=== PATIENT | female | born 1945 | race Caucasian/White ===

== ENCOUNTER → 2016-09-27 | Outpatient (CLI) | payer OTHER ==
--- NOTE | 2016-09-27 12:43 | DX ---
PA lateral chest x-ray 1204 hours. History: Productive cough and fever hip for 7 to 10 days. Rule out pneumonia. Findings: Comparison to September 04, 2015 as well as remote images from CT HeartScan study of 2011. Heart size and pulmonary vasculature remain within normal limits. There is mild peribronchial cuffing in the perihilar region bilaterally. There is no consolidation, effusion, or pneumothorax. There is stable scarring in the lingula. Osseous structures are unchanged. Impression: 1. Mild peribronchial cuffing in the perihilar region. Findings are nonspecific but can be seen with bronchitis, viral process, or reactive airways disease. 2. Stable scarring within the lingula.
== END ==
LOC: FIMAGING 12:05
PROVIDERS: ATTEND Family Medicine
DX: R05 Cough (principal); R50.9 Fever, unspecified

== ENCOUNTER → 2017-08-03 | Outpatient (CLI) | payer OTHER ==
[~2017-08-03] MED LIST: GADOBUTROL 10 ML VIAL IVP ONE
== END ==
LOC: FIMAGING 10:38
PROVIDERS: ATTEND Psychiatry & Neurology Neurology
DX: G93.9 Disorder of brain, unspecified (principal)
CPT/HCPCS: 70553; A9585

== ENCOUNTER → 2018-01-28 | Outpatient (CLI) | payer OTHER | LOC: BHFA 14:00 | PROVIDERS: ATTEND Internal Medicine Cardiovascular Disease | DX: I25.10 Atherosclerotic heart disease of native coronary artery without angina pectoris (principal) ==

== ENCOUNTER → 2018-02-02 | Outpatient (CLI) | payer OTHER | LOC: BHFA 10:45 | PROVIDERS: ATTEND Internal Medicine Cardiovascular Disease | DX: I25.10 Atherosclerotic heart disease of native coronary artery without angina pectoris (principal) ==

== ENCOUNTER → 2018-08-22 | Outpatient (CLI) | payer OTHER | LOC: FIMAGING 13:32 | PROVIDERS: ATTEND Family Medicine | DX: Z12.31 Encounter for screening mammogram for malignant neoplasm of breast (principal) ==

== ENCOUNTER → 2018-11-15 | Day surgery (SDC) | payer OTHER ==
[~2018-11-15] MED LIST changes: +ASPIRIN EC 325 MG TAB PO ONE; +ATROPINE SULFATE 1 MG/10 ML SYR ONE; +CLOPIDOGREL BISULFATE 75 MG TAB ONE; +CLOPIDOGREL BISULFATE 75 MG TAB PO ONE; +CLOPIDOGREL BISULFATE 75 MG TAB PO SCH; +DIAZEPAM 5 MG TAB PO ONE; +EPINEPHrine 1 MG/10 ML SYR IVP ONE; +FAMOTIDINE 20 MG TAB PO ONE; -GADOBUTROL 10 ML VIAL IVP ONE; +HEPARIN 10,000 UNIT/10 ML MDV (1,000 UNIT/ML) ONE; +IOPAMIDOL (ISOVUE-370) 150 ML BTL IV ONE; +LIDOCAINE 1% 300 MG/30 ML SDV ONE; +MIDAZOLAM 2 MG/2 ML VIAL ONE; +NITROGLYCERIN 0.4 MG BTL SL PRN; +NS 1,000 ML IV ONE; +VERAPAMIL 5 MG/2 ML VIAL ONE; +diphenhydrAMINE 25 MG CAP PO ONE; +fentaNYL 100 MCG/2 ML INJ ONE
--- NOTE | 2018-11-15 09:06 | PDPROPOC ---
Sedation Plan of Care Sedation Plan of Care: vital signs stable, mental status noted, patient educated of risks, benefits, alternatives, patient can tolerate sedation ASA Classification: ASA 2 Planned drugs: fentanyl, midazolam Mallampati Score: Class 1 Mallampati Reference Image: Patient passed 3-3-2 rule?: Yes
--- NOTE | 2018-11-15 09:06 | PDHPUP ---
History & Physical Update H&P update statement: This history and physical update is based on an assessment of the patient which was completed after admission or registration (within 24 hours), but prior to the surgery/procedure. H&P update: H&P reviewed & patient examined, no change in patient's condition since H&P completed
[2018-11-15 09:20] LABS: PLATELET COUNT 340 10^3/uL (150-400)
[2018-11-15 09:34] LABS: INR 1.01 (0.83-1.16); PROTIME(PATIENT) 13.5 SEC (12.0-15.0)
--- NOTE | 2018-11-15 11:33 | PDDXCAT ---
Diagnostic Cath Note - . Date: 11/15/18 Home Planning Consultant Salesperson: Guero Indication: CCC Class III and IV angina on medical treatment - Procedure Access: right wrist Procedure: left heart catheterization, coronary angiography - Materials Left Heart Cath size: 4F Left Heart Cath materials: standard multipack (JL4, JR4, pigtail) - Findings-Left Heart Catheterization LM: Unobstructed LAD: Stent widely patent. Luminal regularities 20-30% LCX: 100% occluded distally with [id number] filling of the distal vessel. RCA: 99% critical mid RCA stenosis Complications: None Estimated blood loss: <50ml Closure method: TR Band Assessment: Unstable angina with critical mid RCA stenosis. Patent LAD stent. Chronically occluded obtuse marginal branch Plan: PCI Intervention: Patient was anticoagulated with heparin. Using a 6 [place] no torque right guiding catheter the right coronary selectively intubated. Using a 0.014 luge wire the RCA stenosis was crossed. Was primarily stented with a 3.0 x 16 mm synergy stent. Stent was taken to 3.3 mm at 20 atmospheres. Repeat angiogram showed GAL grade 3 flow. Conclusion successful PCI and stenting of the mid RCA.
--- NOTE | 2018-11-15 14:33 | ECHO ---
[email or web address] [address] [address] Main: [phone] Fax: Transthoracic Echocardiogram Name: OSORIO LAGUNAS MR#: [id number] Study Date: 11/15/2018 Study Time: 01:26 PM Date of : 1945 Age: 73 year(s) Height: 154.9 cm (61 in.) Weight: 58.97 kg (130 lb.) BSA: 1.57 m2 Gender: Female Examination: Limited Echo Indication: LV Function Image Quality: Contrast: Requested by: Saad Jack BP: / Heart Rate: Rhythm: Indication: LV Function Procedure Staff Motor Vehicle Assembler: Brinda Massey [facility] Reading Physician: Emilia Crespo MD Requesting Provider: Conclusions: Limited echo to assess LV systolic function. Ejection fraction is normal at 62%. No regional wall motion abnormalities. Measurements: Chambers Valvular Assessment AV/MV Valvular Assessment TV/PV Normal Normal Normal Name Value Range Name Value Range Name Value Range LVEF (MOD4): 62 % (>=55 %) Continued Measurements: Findings: Left Ventricle: Normal size left ventricle. Normal global systolic LV function. EF is 62 %. No regional wall motion abnormality. (No Signature Object) Patient: OSORIO LAGUNAS Study Date: 11/15/2018 Page 1 of 1 01:26 PM [id number]
== END | disposition home or self-care (01) ==
LOC: FCATH 08:43 → F2W 12:11 → UNDOADMOB 12:11
PROVIDERS: ATTEND Internal Medicine Interventional Cardiology
DX: I25.110 Atherosclerotic heart disease of native coronary artery with unstable angina pectoris (principal); I25.82 Chronic total occlusion of coronary artery; I10 Essential (primary) hypertension; E78.5 Hyperlipidemia, unspecified; G47.00 Insomnia, unspecified; Z79.82 Long term (current) use of aspirin; Z86.010 Personal history of colon polyps; Z82.49 Family history of ischemic heart disease and other diseases of the circulatory system; Z95.5 Presence of coronary angioplasty implant and graft; Z96.652 Presence of left artificial knee joint
CPT/HCPCS: 92928; 93308; 93454; C1769; C1887; C1874; C9600; J0461; J1200; J1644; J2250; J3010; Q9967